=== PATIENT | female | born 1970 | race Caucasian/White ===

== ENCOUNTER → 2019-07-21 | Outpatient (CLI) | payer BC ==
[2019-07-21 15:48] LABS: HCT 35.2 % (34.0-46.0); HGB 11.1 gm/dL (11.4-16.0); Hypochromasia Moderate; MCHC 31.5 g/dL (31.0-37.0); MCV 85.6 fL (80.0-100.0); Platelet Count 495 k/uL (150-450); RBC 4.11 m/uL (3.80-5.40); WBC 7.7 k/uL (3.8-10.6)
[2019-07-21 16:08] LABS: INR 0.9 (<1.2); Partial Thromboplastin Time 26.9 sec (22.0-30.0); Prothrombin Time 9.9 sec (9.0-12.0)
[2019-07-21 23:51] LABS: Hemoglobin A1C 5.9 % (4.0-6.0)
[2019-07-22 02:36] LABS: Folate, Serum 8.3 ng/mL
[2019-07-22 02:55] LABS: % Iron Saturation 3.85 (12.00-45.00); African American GFR (CKD) 98.9 (60.0-200.0); Albumin 4.7 g/dL (3.80-4.90); Albumin/Globulin Ratio 2.14 (1.60-3.17); Anion Gap 12.4 mmol/L (4.00-12.00); BUN/Creat Ratio 13.75 Ratio (12.00-20.00); Calcium 9.4 mg/dL (8.7-10.3); Carbon Dioxide 24.6 mmol/L (21.6-31.8); Chol/HDL Ratio 2.4; Ferritin 5.4 ng/mL (10.0-291.0); Globulin 2.2 g/dL (1.6-3.3); LDL Cholesterol,Calculated 82.2 mg/dL (0.0-131.0); Non-African American GFR(CKD) 85.4 (60.0-200.0); Phosphorus 4.2 mg/dL (2.4-5.1); Total Bilirubin 0.1 mg/dL (0.3-1.2); Total Protein 6.9 g/dL (6.2-8.2); VLDL Calculation 25.8 mg/dL (5.00-40.00)
[2019-07-22 13:07] LABS: Zinc, Serum 55 ug/dL (60-130)
[2019-07-23 06:47] LABS: Vit B1(Thiamine) 50 ug/L (38-122)
[2019-07-23 07:14] LABS: Vitamin A 45 ug/dL (38-106)
== END | disposition home or self-care (01) ==
LOC: LABWHC1 15:12
PROVIDERS: ATTEND Surgery Plastic and Reconstructive Surgery
DX: E66.01 Morbid (severe) obesity due to excess calories (principal); E21.1 Secondary hyperparathyroidism, not elsewhere classified; E89.1 Postprocedural hypoinsulinemia; D50.8 Other iron deficiency anemias; K90.89 Other intestinal malabsorption; E55.9 Vitamin D deficiency, unspecified; K76.9 Liver disease, unspecified; N19 Unspecified kidney failure; K50.90 Crohn's disease, unspecified, without complications
CPT/HCPCS: 36415; 80053; 80061; 82306; 82525; 82607; 82728; 82746; 83036; 83540; 83550; 83735; 83970; 84100; 84134; 84255; 84425; 84443; 84590; 84630; 85027; 85610; 85730

== ENCOUNTER 2019-09-03 07:44 | Day surgery (SDC) | payer BC ==
[2019-09-01 13:29] VITALS: BMI 40.4
[~2019-09-03 07:44] MED LIST: LACTATED RINGERS 1,000 ML IV SCH
--- NOTE | 2019-09-03 07:47 | P.GSHP ---
History of Present Illness H&P Date: 09/03/19 CHIEF COMPLAINT: GERD and colon screen HISTORY OF PRESENT ILLNESS: The patient is a 49-year-old female who presents with gastroesophageal reflux disease and need for colon screen. Upper and lower endoscopy were offered for further evaluation and management. PAST MEDICAL HISTORY: Please see list. PAST SURGICAL HISTORY: Please see list. MEDICATIONS: Please see list. ALLERGIES: Please see list. SOCIAL HISTORY: No illicit drug use FAMILY HISTORY: No reports of Crohn disease or ulcerative colitis. REVIEW OF ORGAN SYSTEMS: CONSTITUTIONAL: No reports of fevers or chills. GI: Denies any blood in stools or constipation. PHYSICAL EXAM: VITAL SIGNS: Stable GENERAL: Well-developed pleasant in no acute distress. HEENT: No scleral icterus. Extraocular movements grossly intact. Moist buccal mucosa. NECK: Supple without lymphadenopathy. CHEST: Unlabored respirations. Equal bilateral excursions. CARDIOVASCULAR: Regular rate and rhythm. Distal 2+ pulses. ABDOMEN: Soft, nondistended. MUSCULOSKELETAL: No clubbing, cyanosis, or edema. ASSESSMENT: 1. Gastroesophageal reflux disease 2. Colon screen. PLAN: 1. Recommend proceeding with an upper and lower endoscopy Past Medical History Past Medical History: GERD/Reflux, Osteoarthritis (OA) Additional Past Medical History / Comment(s): migraines, heart murmer, anemia, hx kidney stones History of Any Multi-Drug Resistant Organisms: None Reported Past Surgical History: Bariatric Surgery, Section, Cholecystectomy Additional Past Surgical History / Comment(s): C/S x 4, lithotripsy x 4, ureter bypass(artificial ureter), gastric bypass, abdominoplasty Past Anesthesia/Blood Transfusion Reactions: No Reported Reaction Smoking Status: Never smoker - Past Family History Mother Family Medical History: No Reported History Medications and Allergies Home Medications Medication Instructions Recorded Confirmed Type Ascorbic Acid [Vitamin C] 1,000 mg PO DAILY 09/01/19 09/01/19 History Biotin 10,000 mcg PO DAILY 09/01/19 09/01/19 History Cholecalciferol (Vitamin D3) 4,000 unit PO DAILY 09/01/19 09/01/19 History [Vitamin D3] FLUoxetine HCL [PROzac] 20 mg PO DAILY 09/01/19 09/01/19 History Pantoprazole Sodium [Protonix] 40 mg PO DAILY 09/01/19 09/01/19 History Vitamin B12 9,000 mcg PO DAILY 09/01/19 09/01/19 History buPROPion XL [Wellbutrin Xl] 150 mg PO DAILY 09/01/19 09/01/19 History lamoTRIgine [LaMICtal] 25 mg PO HS 09/01/19 09/01/19 History valACYclovir HCL [Valtrex] 500 mg PO DAILY 09/01/19 09/01/19 History Allergies Allergy/AdvReac Type Severity Reaction Status Date / Time No Known Allergies Allergy Verified 09/01/19 13:18
[2019-09-03] MEDS ORDERED: LIDOCAINE 1% 20 ML VIAL (10MG/ML) FOR IV START INTRADERMA ONE (08:25)
[2019-09-03] MEDS ORDERED: ONDANSETRON 4 MG/2 ML VIAL IVP ONE (08:26)
[2019-09-03] MEDS ORDERED: PROPOFOL 10 MG/ML 20 ML VIAL IV ONE (08:27)
[2019-09-03] MEDS ORDERED: LIDOCAINE 1% INJ 10MG/ML (20 ML MDV) ONE (08:27)
[2019-09-03 08:28] VITALS: TEMP 97.9
--- NOTE | 2019-09-03 09:01 | P.PCN ---
Date of Procedure: 09/03/19 Description of Procedure: PREOPERATIVE DIAGNOSIS: Dysphagia. Gastroesophageal reflux disease s/p Naz-en-y gastric bypass. Nausea with vomiting. Morbid obesity due to excess calories, BMI 41.2 POSTOPERATIVE DIAGNOSIS: Dysphagia. Gastroesophageal reflux disease s/p Naz-en-y gastric bypass. Nausea with vomiting. Morbid obesity due to excess calories, BMI 41.2 Diaphragmatic hiatal hernia Gastrojejunal stricture without chronic ulcer without perforation OPERATION: Esophagogastrojejunoscopy with balloon dilatation from 15 to 18 mm. SURGEON: Goldie Lazo MD ANESTHESIA: MAC. INDICATIONS: The patient is a 49-year-old female who presents with a history of gastroesophageal reflux disease. Benefits and risks of the procedure were described. Informed consent was obtained. DESCRIPTION: The patient was brought into the endoscopy suite and laid in the left lateral decubitus position. After a timeout was confirmed, the procedure was initiated. An Olympus gastroscope was passed along the posterior oropharynx down to the distal esophagus where the squamocolumnar junction was unremarkable. The gastric pouch was entered. A gastrojejunal stricture of 15 mm was found as the adult gastroscope was 9.5 mm in size. A octoScope balloon dilator was placed through the scope. Final insufflation up to 18 mm was performed with a total of 2 minutes. The scope was advanced up to 60 cm from the incisors into the Naz limb. The mucosa of the gastrojejunal anastomosis was intact. No chronic g astrojejunal marginal ulcer was encountered. No full-thickness injury was encountered. The GI tract was desufflated. The patient tolerated the procedure well. FINDINGS: Squamocolumnar junction unremarkable at 30 cm. Stricture of approximately 15 mm encountered. Diaphragmatic hiatal hernia 5 cm Blind jejunal limb 6 cm No chronic gastrojejunal ulceration encountered. Successful balloon dilatation to 18 mm. Diaphragmatic hiatus at 35 cm. RECOMMENDATIONS: Upper endoscopy as needed Recommend esophagram
--- NOTE | 2019-09-03 09:04 | P.PCN ---
Date of Procedure: 09/03/19 Description of Procedure: PREOPERATIVE DIAGNOSIS: Colonoscopy screening, first POSTOPERATIVE DIAGNOSIS: Colonoscopy screening, first OPERATION: Colonoscopy to the ileocecal valve and appendiceal orifice. SURGEON: Goldie Lazo MD. ANESTHESIA: MAC. INDICATIONS: The patient is a 49-year-old female who presents for colonoscopy screening. This is her first. Benefits and risks were described and informed consent was obtained. DESCRIPTION OF PROCEDURE: The patient had undergone Suprep. She had been brought into the operating room and laid in the left lateral decubitus position. After adequate intravenous sedation, the rectum was examined with 2% lidocaine jelly. External hemorrhoids were encountered. The rectal tone was within normal limits. No lesions were palpated in the rectal vault. An Olympus colonoscope was advanced until the ileocecal valve and appendiceal orifice were clearly viewed. The prep was fair. The scope was removed with visualization of each mucosal fold. Scattered diverticulosis was encountered. No colonic polyps were found. No evidence of focal colitis was found. Retroflexion of the scope demonstrated grade 1 internal hemorrhoids without active bleeding or inflammation. The colon was desufflated. The patient had tolerated the procedure well. Withdrawal time was over 6 minutes. FINDINGS: Aronchick preparation quality scale 2 (1-5) Internal hemorrhoids, grade 1 External prolapsed hemorrhoids, grade 1 No arteriovenous malformations. No adenomatous polyps. No focal colitis. RECOMMENDATIONS: Lower endoscopy in 10 years, 2030 or Cologaurd Plan - Discharge Summary New Discharge Prescriptions: No Action Pantoprazole Sodium [Protonix] 40 mg PO DAILY Cholecalciferol (Vitamin D3) [Vitamin D3] 4,000 unit PO DAILY Biotin 10,000 mcg PO DAILY Ascorbic Acid [Vitamin C] 1,000 mg PO DAILY lamoTRIgine [LaMICtal] 25 mg PO HS buPROPion XL [Wellbutrin Xl] 150 mg PO DAILY FLUoxetine HCL [PROzac] 20 mg PO DAILY valACYclovir HCL [Valtrex] 500 mg PO DAILY Vitamin B12 9,000 mcg PO DAILY Discharge Medication List Ascorbic Acid [Vitamin C] 1,000 mg PO DAILY 09/01/19 [History] Biotin 10,000 mcg PO DAILY 09/01/19 [History] Cholecalciferol (Vitamin D3) [Vitamin D3] 4,000 unit PO DAILY 09/01/19 [History] FLUoxetine HCL [PROzac] 20 mg PO DAILY 09/01/19 [History] Pantoprazole Sodium [Protonix] 40 mg PO DAILY 09/01/19 [History] Vitamin B12 9,000 mcg PO DAILY 09/01/19 [History] buPROPion XL [Wellbutrin Xl] 150 mg PO DAILY 09/01/19 [History] lamoTRIgine [LaMICtal] 25 mg PO HS 09/01/19 [History] valACYclovir HCL [Valtrex] 500 mg PO DAILY 09/01/19 [History] Follow up Appointment(s)/Referral(s): Goldie Lazo MD [STAFF PHYSICIAN] - 09/15/19 Patient Instructions/Handouts: Esophageal Dilation (DC), *Surgery [facility] - (Anesthesia) Endoscopy Discharge Instructions Activity/Diet/Wound Care/Special Instructions: Repeat colonoscopy in 10 years, 2030 or Cologaurd Discharge Disposition: HOME SELF-CARE
[2019-09-03 09:24] VITALS: BP 113/74; PULSE 54; RESP 16
== END 2019-09-03 09:43 | disposition home or self-care (01) ==
LOC: ORWHC2ENDO 07:44
PROVIDERS: ATTEND Surgery Plastic and Reconstructive Surgery
DX: Z12.11 Encounter for screening for malignant neoplasm of colon (principal); K95.89 Other complications of other bariatric procedure; K44.9 Diaphragmatic hernia without obstruction or gangrene; K64.0 First degree hemorrhoids; K21.9 Gastro-esophageal reflux disease without esophagitis; M19.90 Unspecified osteoarthritis, unspecified site; G43.909 Migraine, unspecified, not intractable, without status migrainosus; R01.1 Cardiac murmur, unspecified; E66.01 Morbid (severe) obesity due to excess calories; Z68.41 Body mass index [BMI] 40.0-44.9, adult; D64.9 Anemia, unspecified; Z87.442 Personal history of urinary calculi; Z90.49 Acquired absence of other specified parts of digestive tract; Z79.899 Other long term (current) drug therapy
CPT/HCPCS: 81025; 43245; J2405; J2001; J2704; C1726; G0121; 43249

== ENCOUNTER → 2019-10-05 | Outpatient (CLI) | payer BC ==
--- NOTE | 2019-10-05 12:08 | US ---
EXAMINATION TYPE: US thyroid st tissue head/neck DATE OF EXAM: 10/05/2019 COMPARISON: NONE CLINICAL HISTORY: E21 Hyperparathyroidism. abnormal blood work GLAND SIZE: Right Lobe: 4.8 x 2.0 x 1.7 cm Overall Parenchyma: Somewhat heterogenous Left Lobe: 5.7 x 1.7 x 1.4 cm Overall Parenchyma: Somewhat heterogenous Isthmus Thickness: 0.3 cm NODULES RIGHT: # of nodules measured on right: 0 LEFT: # of nodules measured on left: 0 ISTHMUS: # of nodules measured in the isthmus: 0 Bilateral neck scanned, no evidence of lymphadenopathy. IMPRESSION: Thyromegaly with no solid or cystic thyroid sizable nodules. Correlate for thyroiditis.
--- NOTE | 2019-10-05 12:58 | NM ---
EXAMINATION TYPE: NM thyroid image only DATE OF EXAM: 10/05/2019 COMPARISON: Ultrasound 10/05/2019 HISTORY: Hyperparathyroidism TECHNIQUE: After the intravenous administration of 10.31 mCi Tc 99m Sodium Pertechnetate. FINDINGS: Homogeneous uptake seen throughout both lobes of thyroid with no hot or cold defect. IMPRESSION: Normal thyroid scan and uptake.
== END | disposition home or self-care (01) ==
LOC: RADUSMAIN 10:11
PROVIDERS: ATTEND Surgery Plastic and Reconstructive Surgery
DX: E21.3 Hyperparathyroidism, unspecified (principal)
CPT/HCPCS: 78013; 76536; A9512

== ENCOUNTER → 2021-10-23 | Outpatient (CLI) | payer BC, OTHER ==
--- NOTE | 2021-10-23 13:21 | FL ---
Barium swallow HISTORY: Hiatal hernia Patient was given high density barium to drink. Multiple images were obtained over the esophagus and postsurgical bed. 67 seconds fluoroscopy time, 11 images document the procedure. Patient is status post gastric bypass. Some tertiary esophageal contractions are noted distally. Ther e is no obstruction to flow. Small hiatal hernia is present just proximal to the surgical bed. There is no extravasation. No significant reflux identified during the course of the exam. IMPRESSION: Postop changes as described. Small hiatal hernia suspected.
== END | disposition home or self-care (01) ==
LOC: RADUSWWP 10:47
PROVIDERS: ATTEND Surgery Plastic and Reconstructive Surgery
DX: K44.9 Diaphragmatic hernia without obstruction or gangrene (principal); K56.609 Unspecified intestinal obstruction, unspecified as to partial versus complete obstruction
CPT/HCPCS: 74220

== ENCOUNTER → 2021-11-02 | Outpatient (CLI) | payer BC ==
--- NOTE | 2021-11-02 13:25 | CT ---
EXAMINATION TYPE: CT abdomen pelvis w con DATE OF EXAM: 11/02/2021 HISTORY: hiatal hernia, epigastric pain. History of gastric bypass. CT DLP: 1275mGycm Automated Exposure Control for Dose Reduction was Utilized. CONTRAST: CT scan of the abdomen and pelvis is performed with IV Contrast, patient injected with 100 mL of Isov ue 300. COMPARISON: Esophagram 10 days ago. FINDINGS: LUNG BASES: No significant abnormality is appreciated. LIVER/GB: Cholecystectomy clips are seen. PANCREAS: No significant abnormality is seen. SPLEEN: No significant abnormality is seen. ADRENALS: No significant abnormality is seen. KIDNEYS: Roughly 1.0 cm rounded low dense lesion posteriorly lower pole of right kidney favors benign thin-walled cyst. Mildly distended bladder. BOWEL: Oral contrast reaches level of the hepatic flexure. No suspicious small or large bowel dilatat ion. Surgical sutures from gastric bypass noted in the epigastric region just below the diaphragm. Sm all hiatal hernia is identified correlating with recent esophagram UTERUS/ADNEXA: Anteverted uterus. LYMPH NODES: No greater than 1cm abdominal or pelvic lymph nodes are appreciated. OSSEOUS STRUCTURES: Mild to moderate disc space narrowing with vacuum disc phenomenon at L5-S1 level. Dextroconvex scoliosis centered at L2-L3 level. Multilevel facet arthropathy in the lower lumbar spi ne. OTHER: Numerous surgical clips over the deep subcutaneous tissue in the lower abdominal and pelvic an terior abdominal wall. IMPRESSION: Redemonstration of known small sized hiatal hernia. Surgical changes from gastric bypass procedure redemonstrated just below diaphragm.
== END | disposition home or self-care (01) ==
LOC: RADCTMAIN 11:25
PROVIDERS: ATTEND Surgery Plastic and Reconstructive Surgery
DX: K56.609 Unspecified intestinal obstruction, unspecified as to partial versus complete obstruction (principal); K44.9 Diaphragmatic hernia without obstruction or gangrene
CPT/HCPCS: 74177; Q9967

== ENCOUNTER → 2021-11-09 | Outpatient (CLI) | payer BC, OTHER ==
[2021-11-09 09:36] LABS: INR 0.9 (<1.2); Partial Thromboplastin Time 25.4 sec (22.0-30.0); Prothrombin Time 9.9 sec (9.0-12.0)
[2021-11-09 15:09] LABS: HCT 41.3 % (37.2-46.3); HGB 12.4 g/dL (12.0-15.0); MCH 27.7 pg (27.0-32.0); MCV 92.2 fL (80.0-97.0); Mean Platelet Volume 9.6 fL (9.5-12.2); NRBC Per 100 WBC 0 /100 WBCS (0.0-0.0); Platelet Count 419 X 10*3/uL (140-440); RBC 4.48 X 10*6/uL (4.10-5.20); RDW 14.7 % (11.5-14.5); WBC 7.48 X 10*3/uL (4.50-10.00)
[2021-11-09 15:16] LABS: % Iron Saturation 6.27 (12.00-45.00); ALT 14 U/L (8-44); AST 16 U/L (13-35); African American GFR (CKD) 81.6 (60.0-200.0); Albumin 4.4 g/dL (3.8-4.9); Albumin/Globulin Ratio 1.74 (1.60-3.17); Alkaline Phosphatase 104 U/L (41-126); BUN/Creat Ratio 15.21 Ratio (12.00-20.00); Blood Urea Nitrogen 14.1 mg/dL (9.0-27.0); Calcium 9.7 mg/dL (8.7-10.3); Carbon Dioxide 23.8 mmol/L (20.0-27.5); Chloride 102 mmol/L (96-109); Ferritin 5.2 ng/mL (10.0-291.0); Globulin 2.5 g/dL (1.6-3.3); Glucose 90 mg/dL (70-110); Iron 35 ug/dL (50-170); Magnesium 2.3 mg/dL (1.5-2.4); Non-African American GFR(CKD) 70.4 (60.0-200.0); Phosphorus 4.1 mg/dL (2.4-5.1); Potassium 4.5 mmol/L (3.5-5.5); Sodium 139 mmol/L (135-145); Total Iron Binding Capacity 550 ug/dL (228-460); Total Protein 6.9 g/dL (6.2-8.2)
[2021-11-09 15:25] LABS: Chol/HDL Ratio 2.73 Ratio; LDL Cholesterol,Calculated 99.9 mg/dL (0.0-131.0); Prealbumin 28.8 mg/dL (18.0-42.0)
[2021-11-10 13:08] LABS: Zinc, Serum 60 ug/dL (60-130)
== END | disposition home or self-care (01) ==
LOC: LABWHC1 08:08
PROVIDERS: ATTEND Surgery Plastic and Reconstructive Surgery
DX: E66.01 Morbid (severe) obesity due to excess calories (principal); E89.1 Postprocedural hypoinsulinemia; D50.8 Other iron deficiency anemias; E44.0 Moderate protein-calorie malnutrition; E55.9 Vitamin D deficiency, unspecified; K74.1 Hepatic sclerosis; N19 Unspecified kidney failure; K50.90 Crohn's disease, unspecified, without complications
CPT/HCPCS: 36415; 80053; 80061; 82306; 82525; 82607; 82728; 82746; 83036; 83540; 83550; 83735; 83970; 84100; 84134; 84255; 84425; 84443; 84590; 84630; 85027; 85610; 85730

== ENCOUNTER → 2022-07-18 | Outpatient (CLI) | payer BC | END | disposition home or self-care (01) | LOC: LABWHC1 08:25 | PROVIDERS: ATTEND Surgery Plastic and Reconstructive Surgery | DX: R07.89 Other chest pain (principal); R00.1 Bradycardia, unspecified; R94.31 Abnormal electrocardiogram [ECG] [EKG] | CPT/HCPCS: 93005 ==

== ENCOUNTER → 2022-08-08 | Outpatient (CLI) | payer BC ==
[2022-08-08 16:42] VITALS: BP 144/81; PULSE 73; TEMP 97.9
--- NOTE | 2022-08-08 17:16 | P.HPBAR ---
Bariatric H&P - History & Physicial H&P Date: 08/08/22 History & Physicial: Visit/CC: new patient Patient initial contact: Initial weight: Initial weight in pounds: Height: 4 ft 11 in Initial BMI: Last weight: Current weight: 94.347 kg Current weight in pounds: Current BMI: [place] body weight (based on NIH guidelines): Excess body weight loss: The patient is a 52 year-old F who presents for Bariatric Assessment. Highest weight bypass was 225 pounds. Lowest 128 pounds. She had troubles with swallowing before her surgery. Needs rigid dilation. Labs reviewed. Needs new labs. Cardiac clearance obtained. Past Medical History Past Medical History: GERD/Reflux, Osteoarthritis (OA) Additional Past Medical History / Comment(s): migraines, heart murmer, anemia, hx kidney stones History of Any Multi-Drug Resistant Organisms: None Reported Past Surgical History: Bariatric Surgery, Section, Cholecystectomy Additional Past Surgical History / Comment(s): C/S x 4, lithotripsy x 4, ureter bypass(artificial ureter), gastric bypass, abdominoplasty, right carpal tunnel Past Anesthesia/Blood Transfusion Reactions: No Reported Reaction Past Psychological History: Depression Smoking Status: Never smoker Past Alcohol Use History: None Reported Past Drug Use History: None Reported - Past Family History Mother Family Medical History: No Reported History Surgical - Exam Vital Signs Temp Pulse BP 97.9 F 73 144/81 08/08/22 16:35 08/08/22 16:35 08/08/22 16:35 Bariatric Checklist Checklist: Plan: Checklist: EGD: 1. Hiatal hernia: 2. H. Pylori: HgbA1c: Vitamin D: Smoking: Never smoker Primary care physician referral: Kasia Leo NP Psychiatry clearance: Cardiology clearance: Sleep study: Diet journal: VTE risk score: VTE risk level: Rehab needs at discharge:
[2022-08-09 09:19] VITALS: BMI 42.0
== END ==
LOC: BARWHC3 16:29
PROVIDERS: ATTEND Surgery Plastic and Reconstructive Surgery
DX: E66.01 Morbid (severe) obesity due to excess calories (principal); M19.90 Unspecified osteoarthritis, unspecified site; Z68.41 Body mass index [BMI] 40.0-44.9, adult
CPT/HCPCS: 97802; 99213

== ENCOUNTER → 2022-08-09 | Outpatient (CLI) | payer BC ==
[2022-08-09 17:14] LABS: INR 0.9 (<1.2); Partial Thromboplastin Time 26.8 sec (22.0-30.0); Prothrombin Time 9.7 sec (9.0-12.0)
[2022-08-09 22:33] LABS: HCT 36.6 % (37.2-46.3); HGB 11.5 g/dL (12.0-15.0); MCH 26.6 pg (27.0-32.0); MCHC 31.4 g/dL (32.0-37.0); MCV 84.7 fL (80.0-97.0); Mean Platelet Volume 9.3 fL (9.5-12.2); NRBC Per 100 WBC 0 /100 WBCS (0.0-0.0); Platelet Count 482 X 10*3/uL (140-440); RBC 4.32 X 10*6/uL (4.10-5.20); WBC 7.63 X 10*3/uL (4.50-10.00)
[2022-08-09 23:05] LABS: Chol/HDL Ratio 2.84 Ratio; LDL Cholesterol,Calculated 101.9 mg/dL (0.0-131.0)
[2022-08-09 23:23] LABS: % Iron Saturation 7.44 (12.00-45.00); ALT 13 U/L (8-44); AST 22 U/L (13-35); African American GFR (CKD) 92.9 (60.0-200.0); Albumin 4.3 g/dL (3.8-4.9); Albumin/Globulin Ratio 1.57 (1.60-3.17); Alkaline Phosphatase 111 U/L (41-126); BUN/Creat Ratio 19.08 Ratio (12.00-20.00); Blood Urea Nitrogen 15.8 mg/dL (9.0-27.0); Calcium 9.4 mg/dL (8.7-10.3); Carbon Dioxide 22.9 mmol/L (20.0-27.5); Chloride 103 mmol/L (96-109); Globulin 2.7 g/dL (1.6-3.3); Glucose 77 mg/dL (70-110); Iron 40 ug/dL (50-170); Magnesium 2.2 mg/dL (1.5-2.4); Non-African American GFR(CKD) 80.2 (60.0-200.0); Phosphorus 3.1 mg/dL (2.4-5.1); Potassium 4.4 mmol/L (3.5-5.5); Sodium 138 mmol/L (135-145); Total Bilirubin <0.15 mg/dL (0.30-1.20); Total Iron Binding Capacity 531 ug/dL (228-460)
[2022-08-09 23:40] LABS: Prealbumin 25.4 mg/dL (18.0-42.0); Vitamin B12 >3600.0 pg/mL (200.0-944.0)
[2022-08-10 12:00] LABS: Zinc, Serum 57 ug/dL (60-130)
== END | disposition home or self-care (01) ==
LOC: LABWHC1 16:06
PROVIDERS: ATTEND Surgery Plastic and Reconstructive Surgery
DX: E89.1 Postprocedural hypoinsulinemia (principal); E66.01 Morbid (severe) obesity due to excess calories; D50.8 Other iron deficiency anemias; K91.2 Postsurgical malabsorption, not elsewhere classified; E44.0 Moderate protein-calorie malnutrition; E45 Retarded development following protein-calorie malnutrition; E55.9 Vitamin D deficiency, unspecified; K74.1 Hepatic sclerosis; N19 Unspecified kidney failure; K50.90 Crohn's disease, unspecified, without complications; T56.894A Toxic effect of other metals, undetermined, initial encounter
CPT/HCPCS: 36415; 80053; 80061; 82306; 82525; 82607; 82728; 82746; 83036; 83540; 83550; 83735; 83970; 84100; 84134; 84255; 84425; 84443; 84590; 84630; 85027; 85610; 85730

== ENCOUNTER 2022-10-25 10:16 | Observation (INO) | payer BC ==
[~2022-10-25 10:16] MED LIST changes: +CHLORHEXIDINE GLUCONATE 15 ML CUP MUCOUS MEM PRN; +DEXAMETHASONE SOD PHOSPHATE 4 MG/ML 1 ML VIAL IV ONE; +HEPARIN SODIUM,PORCINE/PF 5,000 UNIT/0.5 ML SYRINGE SQ PRN; +HYDROmorphone 0.5 MG/0.5 ML SYRINGE IVP PRN; -LACTATED RINGERS 1,000 ML IV SCH; +LIDOCAINE 1% (10MG/ML) FOR IV START INTRADERMA PRN; +MIDAZOLAM 2 MG/2 ML VIAL IV PRN; +ONDANSETRON 4 MG/2 ML VIAL IVP ONE; +PANTOPRAZOLE 40 MG/10 ML VIAL IVP PRN
[2022-10-25] MEDS: LACTATED RINGERS 1,000 ML IV SCH (10:58)
--- NOTE | 2022-10-25 11:22 | P.GSHP ---
History of Present Illness H&P Date: 10/25/22 CHIEF COMPLAINT: Paraesophageal hiatal hernia with gastroesophageal reflux disease. HISTORY OF PRESENT ILLNESS: The patient is a 52-year-old female who presents with symptomatic paraesophageal hiatal hernia including dysphagia and atypical chest pain for over one year. Patient had confirmatory upper endoscopy including multiple diagnostic studies. She was placed in a 2 week high-protein low-carb diet. She presents for repair of her symptomatic paraesophageal hiatal hernia. Additionally, patient has history of a gastric bypass. PAST MEDICAL HISTORY: Please see list. PAST SURGICAL HISTORY: Please see list. MEDICATIONS: Please see list. ALLERGIES: Please see list. SOCIAL HISTORY: No illicit drug use FAMILY HISTORY: No reports of Crohn disease or ulcerative colitis. REVIEW OF ORGAN SYSTEMS: CONSTITUTIONAL: No reports of fevers or chills. GI: Denies any blood in stools or constipation. PHYSICAL EXAM: VITAL SIGNS: Stable GENERAL: Well-developed pleasant and in no acute distress. HEENT: No scleral icterus. Extraocular movements grossly intact. Moist buccal mucosa. NECK: Supple without lymphadenopathy. CHEST: Unlabored respirations. Equal bilateral excursions. CARDIOVASCULAR: Regular rate and rhythm. Distal 2+ pulses. ABDOMEN: Soft, nondistended. No peritoneal signs. MUSCULOSKELETAL: No clubbing, cyanosis, or edema. SKIN: Well-perfused. Good skin turgor. REPORTS: Upper endoscopy demonstrates paraesophageal hiatal hernia BARIUM SWALLOW: Images reviewed demonstrating paraesophageal hiatal hernia. This is my independent interpretation. REPORTS: Cardiology risk assessment obtained. Please see chart. ASSESSMENT: 1. Diaphragmatic paraesophageal hiatal hernia with severe gastroesophageal reflux disease. 2. Morbid obesity due to excess calories, BMI 40.7 3. History of gastric bypass PLAN: 1. Recommend proceeding with a robotic paraesophageal hiatal hernia with possible mesh. 2. Benefits and risks of surgical intervention was discussed including possibility of open technique. 3. Inpatient hospitalization recommended of 2 nights 4. DVT prophylaxis. 5. Antibiotic prophylaxis. 6. She has also completed a very low caloric high-protein diet to address underlying hepatomegaly. 7. Non narcotic pain management including abdominal wall block described 8. Blood sugar glucose described. 9. Weight loss management described. 10. She reports 10 pound weight loss. Presence of hepatomegaly may prohibit proceeding with the procedure including severe intra-abdominal adhesions. Patient is aware overall high risk nature of her procedure in the presence of gastric bypass. Patient understood risk and wanted to proceed. Past Medical History Past Medical History: GERD/Reflux, Osteoarthritis (OA) Additional Past Medical History / Comment(s): migraines, heart murmur, anemia, hx kidney stones, HIATAL HERNIA History of Any Multi-Drug Resistant Organisms: None Reported Past Surgical History: Bariatric Surgery, Section, Cholecystectomy Additional Past Surgical History / Comment(s): C/S x 4, lithotripsy x 4, ureter bypass(artificial ureter), gastric bypass, abdominoplasty, right carpal tunnel, EGD Past Anesthesia/Blood Transfusion Reactions: No Reported Reaction Smoking Status: Never smoker - Past Family History Mother Family Medical History: No Reported History Medications and Allergies Home Medications Medication Instructions Recorded Confirmed Type Ascorbic Acid [Vitamin C] 1,000 mg PO DAILY 09/01/19 10/19/22 History Biotin 10,000 mcg PO DAILY 09/01/19 10/19/22 History Cholecalciferol (Vitamin D3) 10,000 unit PO DAILY 09/01/19 10/19/22 History [Vitamin D3] FLUoxetine HCL [PROzac] 30 mg PO HS 09/01/19 10/25/22 History Vitamin B12 10,000 mcg PO DAILY 09/01/19 10/25/22 History valACYclovir HCL [Valtrex] 1,000 mg PO HS 09/01/19 10/25/22 History Esomeprazole Magnesium [NexIUM] 40 mg PO HS 08/08/22 10/25/22 History LORazepam [Ativan] 0.5 mg PO HS 08/08/22 10/25/22 History hydrOXYzine HCL [Atarax] 50 mg PO HS 08/08/22 10/25/22 History Ashwagandha Root Extract 300 mg PO DAILY 10/04/22 10/19/22 History [Ashwagandha] Fyavolv 1 tab PO HS 10/04/22 10/25/22 History Zinc Gluconate [Zinc] 50 mg PO DAILY 10/04/22 10/25/22 History Allergies Allergy/AdvReac Type Severity Reaction Status Date / Time No Known Allergies Allergy Verified 10/25/22 10:50 Surgical - Exam Vital Signs Temp Pulse Resp BP Pulse Ox 97.7 F 56 L 18 122/79 100 10/25/22 11:02 10/25/22 11:02 10/25/22 11:02 10/25/22 11:02 10/25/22 11:02
[2022-10-25] MEDS ORDERED: MIDAZOLAM 2 MG/2 ML VIAL IVP ONE (11:41)
[2022-10-25 11:43] LABS: Anisocytosis Slight; Basophils # (A) 0.1 k/uL (0-0.2); Basophils % (A) 1 %; Eosinophils # (A) 0.1 k/uL (0-0.7); Eosinophils % (A) 2 %; HCT 42.5 % (34.0-46.0); HGB 13.7 gm/dL (11.4-16.0); Lymphocytes # (A) 1.7 k/uL (1.0-4.8); Lymphocytes % (A) 25 %; MCH 28.7 pg (25.0-35.0); MCHC 32.3 g/dL (31.0-37.0); MCV 88.9 fL (80.0-100.0); Mean Platelet Volume 7.2; Monocytes # (A) 0.4 k/uL (0-1.0); Monocytes % (A) 6 %; Neutrophils # (A) 4.5 k/uL (1.3-7.7); Neutrophils % (A) 64 %; Platelet Count 323 k/uL (150-450); RBC 4.78 m/uL (3.80-5.40); RDW 17.3 % (11.5-15.5)
--- NOTE | 2022-10-25 11:57 | P.ANPRN ---
Procedure Note - Anesthesia - Nerve Block Performed Bilateral Transversus Abdominis Single Date of Procedure: 10/25/22 Procedure Start Time: 11:40 Procedure Stop Time: 11:51 Indication: Acute Post-Operative Pain, Requested by Surgeon Specifically requested for management of pain by DrShreya: Goldie Lazo Sedation Type: Sedate with meaningful contact maintained Preparation: Sterile Prep Position: Supine Needle Gauge: 21 Ultrasound used to visualize needle placement: Yes Ultrasound used to observe medication spread: Yes Injectate: 0.5% Ropivacaine (see comment for volume) Blood Aspirated: No Pain Paresthesia on Injection Noted: No Resistance on Injection: Normal Image Stored and Saved: Yes Events: Uneventful and Well Tolerated (15 mls on each side)
[2022-10-25 12:04] LABS: ALT 30 U/L (4-34); AST 36 U/L (14-36); African American GFR (CKD) >90 (>60 ml/min/1.73 sqM); Albumin 4.3 g/dL (3.5-5.0); Alkaline Phosphatase 96 U/L (38-126); Anion Gap 5 mmol/L; Blood Urea Nitrogen 21 mg/dL (7-17); Calcium 9.2 mg/dL (8.4-10.2); Carbon Dioxide 31 mmol/L (22-30); Chloride 101 mmol/L (98-107); Glucose 88 mg/dL (74-99); Non-African American GFR(CKD) >90 (>60 ml/min/1.73 sqM); Sodium 137 mmol/L (137-145); Total Bilirubin 0.4 mg/dL (0.2-1.3); Total Protein 7.1 g/dL (6.3-8.2)
[2022-10-25 12:09] LABS: Potassium 5.2 mmol/L (3.5-5.1)
[2022-10-25] MEDS ORDERED: ePHEDrine 50 MG/ML 1 ML VIAL ONE (12:54)
[2022-10-25] MEDS ORDERED: PROPOFOL 10 MG/ML 20 ML VIAL IV ONE (12:54)
[2022-10-25] MEDS ORDERED: SUCCINYLCHOLINE CHLORIDE 200 MG/10 ML VIAL IV ONE (12:54)
[2022-10-25] MEDS ORDERED: MIDAZOLAM 2 MG/2 ML VIAL ONE (12:54)
[2022-10-25] MEDS ORDERED: ROCURONIUM 10 MG/ML (5 ML VIAL) IV ONE (12:54)
[2022-10-25] MEDS ORDERED: NEOSTIGMINE 1 MG/ML 10 ML VIAL ONE (12:54)
[2022-10-25] MEDS ORDERED: fentaNYL (PF) 50 MCG/ML 2 ML AMP ONE (12:54)
[2022-10-25] MEDS ORDERED: PHENYLEPHRINE-0.9% NACL SYG 1,000 MCG/10 ML SYRINGE ONE (12:54)
[2022-10-25] MEDS ORDERED: LIDOCAINE 2% INJ 20 MG/ML (2 ML VIAL) ONE (12:54)
[2022-10-25] MEDS ORDERED: GLYCOPYRROLATE 0.2 MG/ML 2 ML VIAL ONE (12:54)
[2022-10-25] MEDS ORDERED: BUPIVACAIN-EPI 0.25%-1:200,000 30 ML VIAL SQ ONE ×2 (13:34→13:35)
[2022-10-25] MEDS ORDERED: LACTATED RINGERS 1,000 ML IV ONE (15:20)
[2022-10-25] MEDS ORDERED: NALOXONE 0.4 MG/ML 1 ML VIAL IV PRN (17:08)
[2022-10-25] MEDS ORDERED: HYDROmorphone 1 MG/ML 1 ML SYRINGE IVP PRN (17:08)
[2022-10-25] MEDS ORDERED: SODIUM CHLORIDE 0.9% 1,000 ML IV ONE (17:10)
--- NOTE | 2022-10-25 17:16 | P.OP ---
Date of Procedure: 10/25/22 Description of Procedure: SURGEON: CORNELIO OROURKE MD PREOPERATIVE DIAGNOSES: 1. Gastroesophageal reflux disease, with erosive esophagitis 2. Paraesophageal hiatal hernia, midline, incarcerated 3. Morbid obesity due to excess calories, BMI of 40.7 4. History of gastric bypass 5. Epigastric abdominal pain. 6. Ineffective esophageal motility 7. Upper esophageal sphincter hypertension 8. 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 9. Dysphagia 10. Depressive disorder POSTOPERATIVE DIAGNOSES: 1. Gastroesophageal reflux disease, with erosive esophagitis 2. Paraesophageal hiatal hernia, midline, with incarceration, 4 x 5 cm, type III 3. Morbid obesity due to excess calories, BMI of 40.7 4. History of gastric bypass 5. Epigastric abdominal pain. 6. Ineffective esophageal motility 7. Upper esophageal sphincter hypertension 8. 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 9. Dysphagia 10. Depressive disorder 11. Epigastric peritoneal lesion OPERATION: 1. Robotic-assisted da Valeria Xi laparoscopic reduction and repair of recurrent incarcerated paraesophageal hiatal hernia, 5 x 4 cm, with [place] Biopatch A 8 x 8 cm. 2. Intraoperative esophagogastroscopy ANESTHESIA: General with local anesthetic. ESTIMATED BLOOD LOSS: 5 mL Pathology: None COMPLICATIONS: None. FINDINGS: 1. Retrocolic antigastric gastric bypass 2. Adhesions epigastrium lysed 3. Incarcerated upper pole of the stomach/gastric pouch within the mediastinum with moderate dissection performed with incision of mediastinal hernia sac, type III paraesophageal hiatal hernia 4. 5 cm paraesophageal incarcerated diaphragmatic hiatal hernia with moderate dissection into the mediastinum 5. [place] Biopatch A onlay mesh placed. 6. Intra-abdominal esophageal length over 2 cm obtained INDICATIONS: The patient is a 52-year-old female who presents with epigastric abdominal pain, dysphagia, history of gastric bypass, gastroesophageal reflux recalcitrant to medical therapy with a symptomatic diaphragmatic hiatal hernia. Preoperative workup including upper endoscopy demonstrated hiatal hernia with e rosive esophagitis. Given the severity of her symptoms, she had elected for surgical intervention. Benefits and risks including bleeding, infection, recurrence, dysphagia, injury to the lung, need for further surgery was described at length. Informed consent was obtained. DESCRIPTION: The patient was brought into the operating room and placed in supine position. Preoperatively she had received heparin subcutaneously for DVT prophylaxis. After general induction, the abdomen was prepped and draped in standard sterile fashion. The patient had previously voided prior to coming to the operating room. [place] draping was placed along the abdomen. A timeout protocol was confirmed with the surgical team, for which the patient's name, procedure to be performed including DVT prophylaxis with bilateral SCDs, and preoperative antibiotics were also confirmed. A robotic da Valeria Xi system was prepped and primed. At 15 cm from the xiphoid to just below the umbilicus, proposed port sites were marked with indelible marker along the left axillary line, left mid-clavicular line with each ports were marked 10 cm from each other. A 5 mm 0 degrees laparoscopic trocar entry was performed along the left upper quadrant. The abdomen was insufflated to 15 mmHg pressure was tolerated well. Diagnostic laparoscopy demonstrated no injury to bowel, viscera. Epigastric adhesions omentum to the abdominal wall is identified. A high splenic flexure towards the diaphragm was identified. Additionally, antigastric retrocolic gastric bypass was identified. Adhesion along the jejunojejunostomy was lysed. A elongated blind jejunal limb was identified with torsion. Adhesional lysis was performed using vessel sealer. Next, one 8 mm robotic port was placed along the right upper abdomen. An 8-mm port was were placed along the left lateral abdominal wall. The camera 8-mm port was maintained along the epigastrium. Another 12 mm port was placed along the left upper abdominal wall after exchanging the 5 mm port. Please note that the ports were placed at least 20 cm away from the target anatomy. Care was taken to check that each robotic arm were safely away from collision with the bed or the patient. The patient was repositioned in reverse Trendelenburg position at 14-degrees after lowering the bed. The robot was docked above the left side of the patient. Using a grasper for arm 3, a grasper for arm 1, including vessel sealer for arm 2, the robotic system was docked and primed as described. Instruments were interchanged by the clerical assistant. I had sat at the console. Initial attention was brought to hiatus. Circumferentially the dissection at the hiatus was performed using vessel sealer including blunt dissection. The remnant gastrohepatic ligament was cleaved using a vessel sealer. Next, the phrenoesophageal ligament was mobilized and the distal esophagus was mobilized circumferentially. An incarcerated hernia sac was found into the mediastinum. As a result, deep dissection well into the mediastinum was needed to free the proximal sleeve gastrectomy including the mid to distal esophagus with retained gastric funduc consistent with a type III hiatal hernia. The left and right crura was identified. Significant mobilization of the distal to mid esophagus into the mediastinum was performed. Circumferentially, the hernia sac was incised and brought into the abdominal cavity. Care was taken to avoid any gastrotomy to the incarcerated upper pole of the stomach. The measured defect was measured with a ruler consistent with 5 cm axial length and 4 cm in width. After extensive dissection, the distal esophagus at least 2 cm was brought into the abdominal cavity. Once the hiatus and crura was dissected, nonabsorbable 2-0 VLOC suture was placed as a running suture to re-approximate the diaphragmatic hiatus posteriorly. To buttress the repair, a [place] Biopatch A was prepared along the back table and cut in a half mcneil-hole fashion as to reinforce the repair as an underlay. The mesh was resized posteriorly placed along the crural repair and tagged using nonabsorbable 2-0 VLOC. I went to the head of the bed to perform intraoperative esopha gogastroduodenoscopy. An Olympus gastroscope was passed through posterior oropharynx, where the squamocolumnar junction was confirmed at 35 cm from the incisors. The hiatus repair was confirmed from the incisors. The stomach was entered. The stomach had been desufflated. No evidence of leaks were found or mucosal defects of the esophagus or stomach. This concluded the endoscopic portion of the case. The robot was undocked from the patient. I re-scrubbed into the case. All instruments and pneumoperitoneum were evacuated from the abdominal cavity. The incisions were cleansed with dilute hydrogen peroxide with saline solution. Incisions were reapproximated using 4-0 Monocryl in an interrupted subcuticular fashion. The 12-mm port site fascial defect was less than 8 mm in size. Exofin was applied to the skin. Local anesthetic was infiltrated in all wounds for postop analgesia. Multiple intra-abdominal films were obtained. At the end of the procedure, needle, sponge, and instrument count was verified correct by the cardiovascular surgical tech. The patient had tolerated the procedure well and was taken to the postanesthesia unit in stable condition. Intraoperative films were reviewed with the patient's family who were pleased with the level of care. Plan - Discharge Summary Discharge Rx Participant: No New Discharge Prescriptions: No Action Cholecalciferol (Vitamin D3) [Vitamin D3] 10,000 unit PO DAILY Biotin 10,000 mcg PO DAILY Ascorbic Acid [Vitamin C] 1,000 mg PO DAILY FLUoxetine HCL [PROzac] 30 mg PO HS valACYclovir HCL [Valtrex] 1,000 mg PO HS Vitamin B12 10,000 mcg PO DAILY LORazepam [Ativan] 0.5 mg PO HS hydrOXYzine HCL [Atarax] 50 mg PO HS Fyavolv 1 tab PO HS Zinc Gluconate [Zinc] 50 mg PO DAILY Esomeprazole Magnesium [NexIUM] 40 mg PO HS Ashwagandha Root Extract [Ashwagandha] 300 mg PO DAILY Discharge Medication List Ascorbic Acid [Vitamin C] 1,000 mg PO DAILY 09/01/19 [History] Biotin 10,000 mcg PO DAILY 09/01/19 [History] Cholecalciferol (Vitamin D3) [Vitamin D3] 10,000 unit PO DAILY 09/01/19 [History] FLUoxetine HCL [PROzac] 30 mg PO HS 09/01/19 [History] Vitamin B12 10,000 mcg PO DAILY 09/01/19 [History] valACYclovir HCL [Valtrex] 1,000 mg PO HS 09/01/19 [History] Esomeprazole Magnesium [NexIUM] 40 mg PO HS 08/08/22 [History] LORazepam [Ativan] 0.5 mg PO HS 08/08/22 [History] hydrOXYzine HCL [Atarax] 50 mg PO HS 08/08/22 [History] Ashwagandha Root Extract [Ashwagandha] 300 mg PO DAILY 10/04/22 [History] Fyavolv 1 tab PO HS 10/04/22 [History] Zinc Gluconate [Zinc] 50 mg PO DAILY 10/04/22 [History]
[2022-10-25] MEDS: KETOROLAC 15 MG/ML 1 ML VIAL IVP SCH ×2 (18:50→23:10)
[2022-10-25] MEDS: SIMETHICONE 40 MG/0.6 ML DROPS 2,000 MG/30 ML BOTTLE PO SCH ×2 (18:51→23:10)
[2022-10-25] MEDS: ACETAMINOPHEN IV (For NPO) 1,000 MG in EMPTY BAG 1 BAG IVPB SCH ×2 (18:51→23:08)
[2022-10-25] MEDS: SODIUM CHLORIDE 0.9% 1,000 ML IV SCH (18:58)
[2022-10-25] MEDS ORDERED: 0.9% NACL WITH KCL 20 MEQ/L 1,000 ML IV SCH (19:00)
[2022-10-25] MEDS ORDERED: DEXAMETHASONE SOD PHOSPHATE 10 MG/ML 1 ML VIAL IVP ONE (20:00)
[2022-10-25] MEDS: PANTOPRAZOLE 40 MG/10 ML VIAL IV SCH (20:49)
[2022-10-25] MEDS ORDERED: ONDANSETRON 4 MG/2 ML VIAL IVP PRN (22:03)
[2022-10-25] MEDS: DEXAMETHASONE SOD PHOSPHATE 4 MG/ML 1 ML VIAL IVP SCH (23:11)
[2022-10-26] MEDS: SODIUM CHLORIDE 0.9% 1,000 ML IV SCH (03:24)
[2022-10-26] MEDS: KETOROLAC 15 MG/ML 1 ML VIAL IVP SCH ×2 (05:41→11:33)
[2022-10-26] MEDS: ACETAMINOPHEN IV (For NPO) 1,000 MG in EMPTY BAG 1 BAG IVPB SCH ×2 (05:42→14:05)
[2022-10-26] MEDS: SIMETHICONE 40 MG/0.6 ML DROPS 2,000 MG/30 ML BOTTLE PO SCH ×2 (05:43→11:32)
[2022-10-26] MEDS: DEXAMETHASONE SOD PHOSPHATE 4 MG/ML 1 ML VIAL IVP SCH ×2 (06:03→11:23)
[2022-10-26] MEDS: LACTATED RINGERS 1,000 ML IV SCH (07:21)
[2022-10-26] MEDS ORDERED: 0.9% NACL WITH KCL 20 MEQ/L 1,000 ML IV SCH (08:00)
[2022-10-26 08:11] VITALS: BP 101/66; PULSE 84; TEMP 99.5
[2022-10-26] MEDS: PANTOPRAZOLE 40 MG/10 ML VIAL IV SCH (08:17)
[2022-10-26 08:34] VITALS: RESP 18
[2022-10-26] MEDS ORDERED: ENOXAPARIN 30 MG/0.3 ML SYRINGE SQ SCH (09:00)
[2022-10-26 11:04] LABS: African American GFR (CKD) 113.8 (60.0-200.0); Anion Gap 11.7 mmol/L (10.00-18.00); BUN/Creat Ratio 18.29 Ratio (12.00-20.00); Blood Urea Nitrogen 12.8 mg/dL (9.0-27.0); Carbon Dioxide 21.3 mmol/L (20.0-27.5); Magnesium 1.9 mg/dL (1.5-2.4); Non-African American GFR(CKD) 98.2 (60.0-200.0); Phosphorus 3.1 mg/dL (2.4-5.1); Potassium 4.4 mmol/L (3.5-5.5)
[2022-10-26 11:32] VITALS: BMI 40.7
--- NOTE | 2022-10-26 12:21 | FL ---
SINGLE CONTRAST ESOPHAGRAM: CLINICAL HISTORY: 52 year-old female rule out leak/obstruction, status post hiatal hernia repair TECHNIQUE: Single contrast exam performed with 50 ml Isovue-370 contrast. Total fluoroscopy time: 2 minutes 46 seconds. Total images: 39. Total DAP: 436.51 FINDINGS: The patient swallowed oral contrast without difficulty or delay. Esophageal peristalsis and motility are within normal limits. There is delay and passage across the surgical site from the esophagus in to the stomach. With a second swallow, intermittent trickle passage of contrast is noted. A moderate relative obstruction remains. There are postsurgical changes of gastrojejunostomy as well. Once contr ast passes into the stomach, there is prompt passage into the jejunum. We note some air distended colon in the upper abdomen. No free intraperitoneal air seen. There is no evidence of contrast extravasation to suggest leak. IMPRESSION: Moderate obstruction at the GE junction likely due to residual postoperative edema. Follow-up can be considered. No evidence of leak status post hiatal hernia repair.
--- NOTE | 2022-10-26 13:23 | P.DS ---
Providers Date of admission: 10/26/22 08:19 Expected date of discharge: 10/26/22 Attending physician: Goldie Lazo Consults: 10/25/22 11:19 Consult Physician Routine Consulting Provider: [facility] Consult Reason/Comments: [facility] Do you want consulting provider notified?: Yes Primary care physician: FABIO Gomez Hospital Course: Discharge diagnosis 1. Gastroesophageal reflux disease, with erosive esophagitis 2. Paraesophageal hiatal hernia, midline, with incarceration, 4 x 5 cm, type III 3. Morbid obesity due to excess calories, BMI of 40.7 4. History of gastric bypass 5. Epigastric abdominal pain. 6. Ineffective esophageal motility 7. Upper esophageal sphincter hypertension 8. 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 9. Dysphagia 10. Depressive disorder 11. Epigastric peritoneal lesion 12. Moderate obstruction and GE junction likely due to residual postoperative edema noted on upper GI Hospital course The patient is a 52-year-old female who presents with epigastric abdominal pain, dysphagia, history of gastric bypass, gastroesophageal reflux recalcitrant to medical therapy with a symptomatic diaphragmatic hiatal hernia. Patient is status post Robotic-assisted da Valeria Xi laparoscopic reduction and repair of recurrent incarcerated paraesophageal hiatal hernia with [place] Biopatch. Patient tolerated surgery well. Her upper GI shows moderate obstruction at the GE junction likely due to residual postoperative edema. Patient did receive IV Decadron. She is tolerating diet. Denies any difficulty with swallowing. She reports her pain is controlled. She has been up and ambulating. Denies any nausea or vomiting. She is afebrile. She is stable for discharge. Physician Certified Caregiver note has been reviewed by physician. Signing provider agrees with the documented findings, assessment, and plan of care. Patient Condition at Discharge: Stable Plan - Discharge Summary Discharge Rx Participant: No New Discharge Prescriptions: New bisacodyL [Dulcolax] 5 mg PO DAILY PRN #10 tab PRN Reason: Constipation Simethicone 40 mg/0.6 ml Drops [Mylicon Drops] 40 mg PO PCHS PRN #30 ml PRN Reason: Gas Ondansetron Odt [Zofran Odt] 4 mg PO Q8HR PRN #9 tab PRN Reason: Nausea Acetaminophen Tab [Tylenol] 1,000 mg PO Q6HR PRN #30 tablet PRN Reason: Pain Continue FLUoxetine HCL [PROzac] 30 mg PO HS valACYclovir HCL [Valtrex] 1,000 mg PO HS LORazepam [Ativan] 0.5 mg PO HS hydrOXYzine HCL [Atarax] 50 mg PO HS Fyavolv 1 tab PO HS Esomeprazole Magnesium [NexIUM] 40 mg PO HS No Action Cholecalciferol (Vitamin D3) [Vitamin D3] 10,000 unit PO DAILY Biotin 10,000 mcg PO DAILY Ascorbic Acid [Vitamin C] 1,000 mg PO DAILY Vitamin B12 10,000 mcg PO DAILY Zinc Gluconate [Zinc] 50 mg PO DAILY Ashwagandha Root Extract [Ashwagandha] 300 mg PO DAILY Discharge Medication List Ascorbic Acid [Vitamin C] 1,000 mg PO DAILY 09/01/19 [History] Biotin 10,000 mcg PO DAILY 09/01/19 [History] Cholecalciferol (Vitamin D3) [Vitamin D3] 10,000 unit PO DAILY 09/01/19 [History] FLUoxetine HCL [PROzac] 30 mg PO HS 09/01/19 [History] Vitamin B12 10,000 mcg PO DAILY 09/01/19 [History] valACYclovir HCL [Valtrex] 1,000 mg PO HS 09/01/19 [History] Esomeprazole Magnesium [NexIUM] 40 mg PO HS 08/08/22 [History] LORazepam [Ativan] 0.5 mg PO HS 08/08/22 [History] hydrOXYzine HCL [Atarax] 50 mg PO HS 08/08/22 [History] Ashwagandha Root Extract [Ashwagandha] 300 mg PO DAILY 10/04/22 [History] Fyavolv 1 tab PO HS 10/04/22 [History] Zinc Gluconate [Zinc] 50 mg PO DAILY 10/04/22 [History] Acetaminophen Tab [Tylenol] 1,000 mg PO Q6HR PRN #30 tablet 10/26/22 [Rx] Ondansetron Odt [Zofran Odt] 4 mg PO Q8HR PRN #9 tab 10/26/22 [Rx] Simethicone 40 mg/0.6 ml Drops [Mylicon Drops] 40 mg PO PCHS PRN #30 ml 10/26/22 [Rx] bisacodyL [Dulcolax] 5 mg PO DAILY PRN #10 tab 10/26/22 [Rx] Follow up Appointment(s)/Referral(s): Goldie Lazo MD [STAFF PHYSICIAN] - 10/30/22 Activity/Diet/Wound Care/Special Instructions: Wear abdominal binder at all times for comfort. No lifting over 4 pounds in 4 weeks. May shower. No bath tub soaks for two weeks Use Tylenol scheduled for the next 24-48 hours for best pain relief. Use ice along incisions for the today to prevent swelling. Hold on taking vitamins until seen by surgeon Discharge Disposition: HOME SELF-CARE
--- NOTE | 2022-10-28 17:15 | P.PN ---
Progress Note - Text Progress Note Date: 10/28/22 Patient contacted at home. She denies dysphagia. She is tolerating liquids. She was taken her omeprazole. Patient asked to discontinue her heartburn medication. Otherwise reports doing quite well. Telehealth follow-up in 2 days. All questions addressed.
== END 2022-10-26 13:58 | disposition home or self-care (01) ==
LOC: OR 10:16 → 4SSUR 15:09 → OR 17:06 → 4SSUR 10-26 08:19
PROVIDERS: ADMIT Surgery Plastic and Reconstructive Surgery; ATTEND Surgery Plastic and Reconstructive Surgery
DX: K44.0 Diaphragmatic hernia with obstruction, without gangrene (principal); K21.00 Gastro-esophageal reflux disease with esophagitis, without bleeding; K66.0 Peritoneal adhesions (postprocedural) (postinfection); R16.0 Hepatomegaly, not elsewhere classified; M19.90 Unspecified osteoarthritis, unspecified site; D64.9 Anemia, unspecified; G43.909 Migraine, unspecified, not intractable, without status migrainosus; F32.A Depression, unspecified; E66.01 Morbid (severe) obesity due to excess calories; Z68.41 Body mass index [BMI] 40.0-44.9, adult; Z79.899 Other long term (current) drug therapy; Z98.84 Bariatric surgery status; Z87.442 Personal history of urinary calculi; Z90.49 Acquired absence of other specified parts of digestive tract; Z98.891 History of uterine scar from previous surgery; Z98.890 Other specified postprocedural states
CPT/HCPCS: 43282; S2900; 64488; 74210; 80048; 80053; 83735; 84100; 85025

== ENCOUNTER → 2023-09-19 | Outpatient (CLI) | payer BC ==
[2023-09-19 17:30] LABS: NT-Pro-B-Type Natriuretic Pept 217 pg/mL
[2023-09-20 02:51] LABS: BUN/Creat Ratio 18.25 Ratio (12.00-20.00); Blood Urea Nitrogen 14.6 mg/dL (9.0-27.0); Calcium 10.2 mg/dL (8.7-10.3); Carbon Dioxide 25.2 mmol/L (21.6-31.8); Chloride 97 mmol/L (96-109); Glucose 79 mg/dL (70-110); Potassium 4.4 mmol/L (3.5-5.5); Sodium 139 mmol/L (135-145)
== END | disposition home or self-care (01) ==
LOC: LABWHC1 14:22
PROVIDERS: ATTEND Internal Medicine Cardiovascular Disease
DX: R60.9 Edema, unspecified (principal)
CPT/HCPCS: 36415; 80048; 83880